=== PATIENT | female | born 1990 | race Caucasian/White ===

== ENCOUNTER 2018-06-16 12:26 | Emergency (ER) | payer BC ==
[~2018-06-16] VITALS: Ht 177.8 cm; Wt 59.0 kg
[2018-06-16 13:11] LABS: APPEARANCE,URINE CLEAR; BILIRUBIN, URINE NEGATIVE (NEGATIVE); COLOR,URINE PALE YELLOW; GLUCOSE, URINE (UA) NEGATIVE (NEGATIVE); KETONES,URINE NEGATIVE (NEGATIVE); LEUKOCYTE ESTERASE ,URINE NEGATIVE (NEGATIVE); NITRITE,URINE NEGATIVE (NEGATIVE); PH,URINE 6 (4.5-8.0); PROTEIN,URINE NEGATIVE (NEGATIVE); UROBILINOGEN,URINE NORMAL MG/DL (0.0-1.0)
[2018-06-16] MEDS ORDERED: Ketorolac 30mg Inj IV ONE (13:15)
[2018-06-16 13:26] VITALS: BP 105/77
--- NOTE | 2018-06-16 13:27 | Emergency Room Report ---
History of Present Illness General Chief Complaint: Abdominal Pain Source: Patient Present Illness HPI 27-year-old female patient presents ER complaining of intermittent crampy periumbilical pain 2 days. Reports intermittent diarrhea symptoms during this time. Reports has been able to pass gas during this time. Denies recent travel or new foods. Denies contacts with similar symptoms. Denies vomiting. Denies fever, chest pain, shortness of breath. Denies dysuria, hematuria. Denies blood in stool or diarrhea. Denies other acute symptoms. Denies history of kidney stones or GI problems.denies recent travel or antibiotic use. Denies radiation of pain. Denies nausea or vomiting. Allergies: Coded Allergies: No Known Allergies (Unverified , 06/16/18) Patient History Past Medical History: see triage record Last Menstrual Period: 2 weeks ago Now: No Reviewed Nursing Documentation: PMH: Agreed; PSxH: Agreed Nursing Documentation-PMH Past Medical History: No Stated History Review of Systems All Other Systems: negative except mentioned in HPI Physical Exam Vital Signs Date Time Temp Pulse Resp B/P (MAP) Pulse Ox O2 Delivery O2 Flow Rate FiO2 06/16/18 12:30 99.2 118 18 126/79 98 Room Air 99.1 Sp02 EP Interpretation: reviewed, normal General Appearance: well appearing, no apparent distress, alert, GCS 15, non- toxic Head: normocephalic, atraumatic Eyes: bilateral eye normal inspection, bilateral eye PERRL ENT: hearing grossly normal, normal pharynx, no angioedema, normal voice, uvula midline, moist mucus membranes Neck: full range of motion Respiratory: lungs clear, normal breath sounds, no rhonchi, no respiratory distress, no accessory muscle use, no wheezing, speaking full sentences Cardiovascular #1: regular rate, rhythm, no edema Gastrointestinal: non tender, soft, no mass, non-distended, no guarding, no rebound, other - negative Rovsing, negative obturator, negative heel strike, negative Acosta, no pulsatile mass Genitourinary: no CVA tenderness Musculoskeletal: back normal, digits/nails normal, gait/station normal, normal range of motion, non-tender Neurologic: alert, oriented x3, responsive, motor strength/tone normal, sensory intact Psychiatric: mood/affect normal Skin: no rash Medical Decision Making PA Attestation Dr. Dent is my supervising Physician whom patient management has been discussed with. Diagnostic Impression: Primary Impression: Abdominal pain Additional Impression: Diarrhea ER Course Pt. presents to the ED c/o abdominal pain and vomiting. Ddx considered but are not limited to UTI, cholecystitis, pancreatitis, appendicitis, AAA, constipation, gastritis, enteritis, viral syndrome, mesenteric adenitis. Begin abdominal pain workup. Provided patient with pain medication. no dysuria, hematuria, or flank pain, low suspicion for kidney stones. no abdominal pulsatile mass, no tenderness to palpation, fever, nontoxic appearing, low suspicion for AAA. Vital signs: are WNL, pt. is afebrile ORDERS: CBC, CMP, Lipase, UA, Urine , KUB, Zofran, and pain medication. ER COURSE: Rovsing sign, negative obturator, negative heel strike,for appendicitis. The patient requesting time. Negative Caosta sign fever on this, this patient for cholecystitis with ultrasound imaging at this time. CBC and CMP unremarkable, no elevation in white blood cells or LFTs. UA negative, patient asx, low suspicion for UTI. Urine negative. Informed patient of results. Lipase within normal limits suspicion for pancreatitis. KUB unremarkable, nonspecific bowel gas pattern per the preliminary reading. patient reports no pain symptoms at this time. Patient reports relief of pain symptoms with medication. symptoms likely due to diarrhea symptoms and irritation of GI tract. no blood in stool, no recent travel, does not require antibiotics at this time. Advised patient on BRAT diet for diarrhea symptoms. Drink plenty fluids to avoid dehydration. ER precautions given. Return to ER for new or worsening of symptoms including but not limited to O abdominal pain, intractable vomiting, chest pain, shortness of breath. follow with primary care provider and discuss referral to GI as needed. DISCHARGE: Rx provided for Tylenol At this time pt. is stable for d/c to home. Patient resting comfortably, in no acute distress, nontoxic appearing, talking without difficulty. Rx provided to patient. Patient to take medications as instructed Will provide with patient care instructions and any necessary prescriptions. Care plan and follow-up instructions provided. Patient instructed to follow-up with primary care provider in 3 - 5 days. Patient questions asked and answered. Patient reports understanding and agreement to treatment plan. ER precautions given. Patient instructed to return to ER immediately for any new or worsening of symptoms including but not limited to increasing SOB, persistent fever, worsening of pain symptoms, intractable vomiting, blood in stool, urine, and/or emesis. - Please note that this Emergency Department Report was dictated using [email or web address] technology software, occasionally this can lead to erroneous entry secondary to interpretation by the dictation equipment. Labs Test 06/16/18 12:53 06/16/18 13:25 Urine Color Pale yellow Urine Appearance Clear Urine pH 6 (4.5-8.0) Urine Specific [place] 1.010 (1.005-1.035) Urine Protein Negative (NEGATIVE) Urine Glucose (UA) Negative (NEGATIVE) Urine Ketones Negative (NEGATIVE) Urine Occult Blood Negative (NEGATIVE) Urine Nitrite Negative (NEGATIVE) Urine Bilirubin Negative (NEGATIVE) Urine Urobilinogen Normal MG/DL (0.0-1.0) Urine Leukocyte Esterase Negative (NEGATIVE) Urine HCG, Qualitative Negative (NEGATIVE) White Blood Count 6.2 K/UL (4.8-10.8) Red Blood Count 4.99 M/UL (4.20-5.40) Hemoglobin 14.1 G/DL (12.0-16.0) Hematocrit 43.5 % (37.0-47.0) Mean Corpuscular Volume 87 FL (80-99) Mean Corpuscular Hemoglobin 28.3 PG (27.0-31.0) Mean Corpuscular Hemoglobin Concent 32.5 G/DL (32.0-36.0) Red Cell Distribution Width 11.3 % (11.6-14.8) Platelet Count 190 K/UL (150-450) Mean Platelet Volume 9.1 FL (6.5-10.1) Neutrophils (%) (Auto) 62.7 % (45.0-75.0) Lymphocytes (%) (Auto) 18.5 % (20.0-45.0) Monocytes (%) (Auto) 14.0 % (1.0-10.0) Eosinophils (%) (Auto) 3.2 % (0.0-3.0) Basophils (%) (Auto) 1.6 % (0.0-2.0) Sodium Level 137 MMOL/L (136-145) Potassium Level 3.8 MMOL/L (3.5-5.1) Chloride Level 102 MMOL/L (98-107) Carbon Dioxide Level 26 MMOL/L (21-32) Anion Gap 10 mmol/L (5-15) Blood Urea Nitrogen 8 mg/dL (7-18) Creatinine 0.9 MG/DL (0.55-1.30) Estimat Glomerular Filtration Rate > 60 mL/min (>60) Glucose Level 103 MG/DL (74-106) Calcium Level 9.4 MG/DL (8.5-10.1) Total Bilirubin 0.6 MG/DL (0.2-1.0) Aspartate Amino Transf (AST/SGOT) 17 U/L (15-37) Alanine Aminotransferase (ALT/SGPT) 13 U/L (12-78) Alkaline Phosphatase 47 U/L (46-116) Total Protein 7.2 G/DL (6.4-8.2) Albumin 3.8 G/DL (3.4-5.0) Globulin 3.4 g/dL Albumin/Globulin Ratio 1.1 (1.0-2.7) Lipase 94 U/L (73-393) Other X-Ray Diagnostic Results Other X-Ray Diagnostic Results : X-Ray ordered: KUB # of Views/Limited Vs Complete: 2 View Indication: Pain EP Interpretation: Yes PA Xray: Interpretation reviewed, by supervising MD, and agrees with findings. Interpretation: no dislocation, no soft tissue swelling, no fractures, nonspecific bowel gas Impression: No acute disease PA Scribe Text Phil Lopez PA-C Last Vital Signs Date Time Temp Pulse Resp B/P (MAP) Pulse Ox O2 Delivery O2 Flow Rate FiO2 06/16/18 13:19 99.2 06/16/18 12:30 118 18 126/79 98 Room Air Disposition: HOME, SELF-CARE Condition: Stable Scripts Acetaminophen* (TYLENOL EXTRA STRENGTH*) 500 Mg Tablet 500 MG ORAL Q8H PRN for Prn Headache/Temp > 101, #30 TAB 0 Refills Prov: Bishop Lopez 06/16/18 Patient Instructions: Abdominal Pain, Adult, Diarrhea, Adult, [id number] Additional Instructions: Followup with primary care provider in 3 -5 days. Avoid spicy foods, avoid dairy foods. BRAT diet: bananas, rice, apple sauce, toast. Take medications as directed. Patient questions asked and answered. ER precautions given, patient instructed to return to ER immediately for any new or worsening of symptoms. Bishop Lopez Jun 16, 2018 13:27
[2018-06-16 13:42] LABS: BASOPHILS % (AUTO) 1.6 % (0.0-2.0); EOSINOPHILS % (AUTO) 3.2 % (0.0-3.0); HEMATOCRIT 43.5 % (37.0-47.0); HEMOGLOBIN 14.1 G/DL (12.0-16.0); LYMPHOCYTES % (AUTO) 18.5 % (20.0-45.0); MEAN CORPUSCULAR VOLUME 87 FL (80-99); NEUTROPHILS % (AUTO) 62.7 % (45.0-75.0); PLATELET COUNT 190 K/UL (150-450); RED BLOOD COUNT 4.99 M/UL (4.20-5.40); RED CELL DISTRIBUTION WIDTH 11.3 % (11.6-14.8); WHITE BLOOD COUNT 6.2 K/UL (4.8-10.8)
[2018-06-16 13:47] LABS: ANION GAP 10 mmol/L (5-15); BLOOD UREA NITROGEN 8 mg/dL (7-18); CALCIUM 9.4 MG/DL (8.5-10.1); CARBON DIOXIDE 26 MMOL/L (21-32); CHLORIDE 102 MMOL/L (98-107); CREATININE 0.9 MG/DL (0.55-1.30); POTASSIUM 3.8 MMOL/L (3.5-5.1); SODIUM 137 MMOL/L (136-145)
[2018-06-16 13:52] LABS: ALANINE AMINOTRANSFERASE 13 U/L (12-78); ALBUMIN 3.8 G/DL (3.4-5.0); ALBUMIN/GLOBULIN RATIO 1.1 (1.0-2.7); ALKALINE PHOSPHATASE 47 U/L (46-116); ASPARTATE AMINO TRANSFERASE 17 U/L (15-37); BILIRUBIN,TOTAL 0.6 MG/DL (0.2-1.0)
[2018-06-16 14:47] VITALS: BP 109/69
[2018-06-16] MEDS ORDERED: TYLENOL EXTRA500 MG ORAL (15:36)
[2018-06-16 15:49] VITALS: BP 95/63
[2018-06-16 15:50] VITALS: BP 95/63
--- NOTE | 2018-06-17 13:59 | Diagnostic Imaging Report ---
Indication: Abdominal pain Technique: XRAY Abdomen 1v Comparison: None Findings: Nonspecific, not overtly obstructive bowel gas pattern. No evidence to suggest free intraperitoneal air however erect/standing view would be more sensitive. Likely hepatosplenomegaly. No acute osseous abnormality identified. IMPRESSION: Nonspecific, nonobstructive bowel gas pattern. * Likely hepatosplenomegaly. Confirmation with abdominal ultrasound recommended. This discrepant from the preliminary interpretation of the treating ER clinician. Findings and imaging follow-up recommendations. Discussed with ER MARIO ALBERTO Claire the afternoon of 06/17/2018.
== END 2018-06-16 15:40 | disposition home or self-care (01) ==
LOC: EDBD 12:26 → EMR 13:48
DX: R10.33 Periumbilical pain (principal); R19.7 Diarrhea, unspecified
CPT/HCPCS: 36415; 74018; 80053; 81003; 81025; 83690; 85025; 96361; 96374; 99284; J1885; 99283